=== PATIENT | female | born 1990 | race Hispanic/Latino ===

== ENCOUNTER 2023-02-18 17:09 | Emergency (ER) | payer OTHER ==
[~2023-02-18] VITALS: Ht 162.6 cm; Wt 79.4 kg
[2023-02-18] MEDS ORDERED: ONDANSETRON ODT 4MG TAB SL ONE (17:30)
[2023-02-18 17:50] LABS: APPEARANCE,URINE CLOUDY (CLEAR); BILIRUBIN,URINE NEGATIVE (NEGATIVE); COLOR,URINE YELLOW (YELLOW); GLUCOSE, URINE (UA) NEGATIVE (NEGATIVE); KETONES,URINE NEGATIVE (NEGATIVE); LEUKOCYTE ESTERASE ,URINE 25 Leu/uL (NEGATIVE); NITRATE,URINE NEGATIVE (NEGATIVE); OCCULT BLOOD,URINE MODERATE (NEGATIVE); PROTEIN,URINE 30 mg/dL (NEGATIVE); UROBILINOGEN,URINE 0.2 mg/dL (0.2-1.0)
[2023-02-18 17:51] LABS: BACTERIA,URINE RARE /HPF (None Seen); MUCUS,URINE RARE LPF (None Seen); RBC,URINE 26-50 /HPF (0-1); SQUAMOUS EPITHELIAL CELL,UR MANY /HPF (0-2)
[2023-02-18] MEDS ORDERED: OSEL75 PO (18:40)
[2023-02-18 18:49] VITALS: BP 110/79
== END 2023-02-18 19:06 | disposition home or self-care (01) ==
LOC: EDH 17:09
DX: J11.1 Influenza due to unidentified influenza virus with other respiratory manifestations (principal); Z20.822 Contact with and (suspected) exposure to COVID-19
CPT/HCPCS: 99284; 71045; 87635; 87077; 87088; 87186; 87880; 87804 ×2; 81001; C9803